=== PATIENT | female | born 1990 | race Two or more races ===

== ENCOUNTER 2022-03-12 21:23 | Emergency (ER) | payer OTHER ==
[~2022-03-12] VITALS: Ht 152.4 cm; Wt 77.1 kg
[2022-03-12 21:39] VITALS: BP 123/89
[2022-03-12] MEDS ORDERED: PROCHLORPERAZINE EDISYLATE 10 MG/2 ML VIAL ONE (22:17)
[2022-03-12] MEDS ORDERED: diphenhydrAMINE HCL 25 MG CAPSULE ONE (22:22)
[2022-03-12 22:30] LABS: BASOPHILS % (AUTO) 0.3 % (0.0-2.0); EOSINOPHILS % (AUTO) 0.7 % (0.0-6.0); HEMATOCRIT 39 % (33-45); HEMOGLOBIN 12.8 g/dL (11.5-14.8); LYMPHOCYTES # (AUTO) 1.2 K/uL (0.8-4.8); LYMPHOCYTES % (AUTO) 16.3 % (20.0-44.0); MEAN CORPUSCULAR HGB CONC 33 g/dl (31.0-36.0); MEAN CORPUSCULAR VOLUME 87 fL (82-100); MONOCYTES # (AUTO) 0.6 K/uL (0.1-1.30); NEUTROPHILS # (AUTO) 5.5 K/uL (1.8-8.9); NEUTROPHILS % (AUTO) 74.7 % (43.0-81.0); PLATELET COUNT (AUTO) 267 K/uL (150-450); RED BLOOD CELL COUNT(AUTO) 4.45 MIL/uL (4.0-5.2); WHITE BLOOD COUNT (AUTO) 7.4 K/uL (4.3-11.0)
[2022-03-12] MEDS ORDERED: DIPHENHYDRAMINE HCL 12.5 MG/5 ML UDC PO ONE (22:30)
[2022-03-12] MEDS ORDERED: PROCHLORPERAZINE EDISYLATE 10 MG/2 ML VIAL IVP ONE (22:30)
--- NOTE | 2022-03-12 22:32 | NUR ---
20G IV STARTED AT [facility]. BLOOD DRAWN AND SENT TO LAB
--- NOTE | 2022-03-12 22:32 | NUR ---
UNABLE TO PROVIDE URINE AT THIS TIME
[2022-03-12 22:41] LABS: CALCIUM, SERUM 8.6 mg/dL (8.5-10.1); CARBON DIOXIDE 32 mmol/L (21-32); CHLORIDE 104 mmol/L (98-107); CREATININE 0.8 mg/dL (0.6-1.3); GLUCOSE 106 mg/dL (74-106); POTASSIUM 3.5 mmol/L (3.5-5.1); SODIUM SERUM 141 mmol/L (136-145); UREA NITROGEN, BLOOD 12 mg/dL (7-18)
--- NOTE | 2022-03-12 22:53 | NUR ---
URINE SENT TO LAB
[2022-03-12 23:22] LABS: BILIRUBIN,URINE NEGATIVE (NEGATIVE); LEUKOCYTE ESTERASE ,URINE NEGATIVE (NEGATIVE); NITRITE, URINE NEGATIVE (NEGATIVE); PROTEIN,URINE NEGATIVE (NEGATIVE); UGLUCOSE NEGATIVE (NEGATIVE); UROBILINOGEN,URINE 0.2 EU/dL (0.2)
[2022-03-12 23:29] LABS: COLOR,URINE LIGHT YELLOW (YELLOW)
--- NOTE | 2022-03-13 00:45 | NUR ---
Patient eloped from facility. ER MD notified.
== END 2022-03-13 00:46 | disposition left against medical advice (07) ==
LOC: ER 21:28
DX: R07.89 Other chest pain (principal); R51.9 Headache, unspecified; F41.9 Anxiety disorder, unspecified
CPT/HCPCS: 99285; 96374; 71045; 93005; 85025; 80048; 84703; 81003; 36415; 84484; J0780; Q0163 ×2